=== PATIENT | female | born 1990 | race Caucasian/White ===

== ENCOUNTER 2022-04-29 09:18 | Emergency (ER) | payer OTHER ==
[~2022-04-29] VITALS: Ht 172.7 cm; Wt 67.6 kg
--- OUTSIDE RECORDS SUMMARY | 2022-04-29 13:54 | XMS ---
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 [facility] has no Care Guidelines for this patient. [place] VISIT COUNT (12 MO.) 1 Gege Cornelius TOTAL 2 NOTE: Visits indicate total known visits. ED/UCC VISIT TRACKING (12 MO.) 04/29/2022 09:20 [facility]ill[facility] [place] TYPE: Emergency COMPLAINT: - ABD PAIN, L RIBCAGE AREA 11/06/2021 11:31 Gege Farr [place] TYPE: Emergency INPATIENT VISIT TRACKING (12 MO.) No inpatient visits to display in this time frame [email or web address]
== END 2022-04-29 13:52 | disposition home or self-care (01) ==
LOC: ED 09:18
DX: R10.12 Left upper quadrant pain (principal); R07.9 Chest pain, unspecified
CPT/HCPCS: 36415; 71046; 74177; 80053; 81003; 83690; 84703; 85025; 85379; 99284-25; Q9967